=== PATIENT | male | born 1970 | race Caucasian/White ===

== ENCOUNTER 2024-07-11 01:10 | Emergency (ER) | payer OTHER ==
[2024-07-11] MEDS ORDERED: Ondansetron PF 4 MG/2 ML Vial ONE (01:42)
[2024-07-11] MEDS ORDERED: Dicyclomine 20 MG/2 ML VIAL ONE (01:42)
[2024-07-11] MEDS ORDERED: Morphine 4 MG/ML VIAL ONE (01:42)
[2024-07-11 02:05] LABS: ALT (SGPT) 12 U/L (8-55); AST (SGOT) 13 U/L (5-34); Albumin 3.4 g/dL (3.5-5.0); Alkaline Phosphatase 64 U/L (40-110); Anion Gap 15 mmol/L (10-20); BUN (Urea Nitrogen) 16 mg/dL (8.4-25.7); Bilirubin, Total 0.4 mg/dL (0.2-1.2); Calc. Creatinine Clearance 0 mL/min (70-130); Calcium 8.9 mg/dL (7.8-10.44); Carbon Dioxide 23 mmol/L (22-29); Chloride 103 mmol/L (98-107); Estimated GFR 80; Glucose 187 mg/dL (70-105); Lipase 31 U/L (8-78); Potassium 3.3 mmol/L (3.5-5.1); Protein, Total 7.4 g/dL (6.0-8.3); Sodium 138 mmol/L (136-145)
[2024-07-11 02:27] LABS: Hematocrit 52.8 % (42.0-52.0); Hemoglobin 16.9 g/dL (14.0-18.0); Mean Corpuscular HGB CONC 32.1 g/dL (32.0-36.0); Mean Corpuscular Hemoglobin 28.3 pg (27.0-31.0); Mean Corpuscular Volume 88.2 fl (78.0-98.0); Platelet Count 356 10x3/uL (130-400); Red Blood Cell (RBC) Count 5.98 mill/uL (4.70-6.10); White Blood Cell (WBC) Count 17.1 10x3/uL (4.8-10.8)
[2024-07-11 02:36] LABS: Band 4 % (5-11); Eosinophils 2 % (0-10); Lymphocytes 37 % (21-51); MDiff Complete? YES; Monocytes 9 % (0-10); Neutrophil 47 % (42-75); Platelet Adequacy Comment Appears Adequate
[2024-07-11] MEDS ORDERED: Piperacillin/Tazobactam 4.5 GM VIAL ONE (03:59)
[2024-07-11 05:02] LABS: Bilirubin Negative (Negative); Blood, Urine Negative (Negative); Clarity Clear (Clear); Glucose, Urine (Dipstick) Negative (Negative); Ketone, Urine 15 mg/dL (Negative); Leukocyte Negative (Negative); Nitrite Negative (Negative); Protein, Urine (Dipstick) Negative (Neg-Trace); Urobilinogen 0.2 mg/dL (Less than 2)
[2024-07-11 05:10] LABS: Bacteria/HPF None Seen HPF (None Seen); CAUTI Indications for Culture Acute Hematuria; RBC/HPF 0-3 HPF (0-3); Squamous Epithelial 0-3 HPF (0-3); WBC/HPF 0-3 HPF (0-3)
[2024-07-11 05:11] LABS: Urine Culture Reflex No No
[2024-07-11] MEDS ORDERED: Iopamidol 370 76% 100 ML VIAL ONE (12:17)
== END 2024-07-11 05:15 | disposition home or self-care (01) ==
LOC: BURERS 01:10
DX: K52.9 Noninfective gastroenteritis and colitis, unspecified (principal); E11.9 Type 2 diabetes mellitus without complications; Z79.4 Long term (current) use of insulin
CPT/HCPCS: 36416; 74177; 80053; 81001; 83605; 83690; 85025; 96361; 96372; 96374; 96375; J2272; J2405; J2543; Q9967